=== PATIENT | female | born 1965 ===

== ENCOUNTER 2019-12-02 07:40 | Day surgery (SDC) | payer MEDICARE ==
[~2019-12-02 07:40] MED LIST: Buffered Lidocaine 1% SYRIN 1 ml INTRADERM ONE; Lactated Ringers 1000 ml BAG 1,000 ML IV SCH
[2019-12-02] MEDS ORDERED: ceFAZolin 2 GM PREMIX in ORs 2 GM/50 ML BAG ONE (08:06)
[2019-12-02] MEDS ORDERED: fentaNYL 100 mcg/2 ml 50 MCG/ML VIAL ONE ×2 (09:04→10:18)
[2019-12-02] MEDS ORDERED: Midazolam 2 mg/2 ml VIAL 1 mg/ml 2 ml VIAL (2 mg) ONE (09:04)
[2019-12-02] MEDS ORDERED: Bupivacaine 0.25% SDV 30 ML ONE (09:22)
[2019-12-02] MEDS ORDERED: ROPIVACAINE 5 MG/ML 30 ML BTL (0.5%) ONE (09:37)
[2019-12-02] MEDS ORDERED: Dexamethasone IV 4 MG/ML VIAL 1 ml VIAL ONE (09:58)
[2019-12-02] MEDS ORDERED: Ondansetron 4 mg VIAL 2 MG/ML 2 ml VIAL ONE (09:58)
[2019-12-02] MEDS ORDERED: Propofol 10 MG/ML 20 ML BTL ONE (09:58)
[2019-12-02] MEDS ORDERED: Lidocaine 2% PF 5 ML VIAL ONE (09:59)
[2019-12-02] MEDS ORDERED: Lidocaine 1% w EPI 1:100,000 MDV 20 ML VIAL ONE (10:41)
[2019-12-02] MEDS ORDERED: Acetaminophen IV 1 GM/100ML 100 ML ONE (11:56)
[2019-12-02] MEDS ORDERED: Naloxone 0.4 mg VIAL 0.4 mg/ml 1 ml VIAL IV PRN (12:55)
[2019-12-02] MEDS ORDERED: HYDROmorphone 1 MG/1 ML SYRINGE ONE (12:57)
[2019-12-02] MEDS: HYDROmorphone 1 MG/1 ML SYRINGE IV PRN ×2 (12:58→13:11)
[2019-12-02 14:12] VITALS: BP 138/93
== END 2019-12-02 15:39 | disposition home or self-care (01) ==
LOC: OR 07:40
PROVIDERS: ATTEND Orthopaedic Surgery
DX: M96.0 Pseudarthrosis after fusion or arthrodesis (principal); Z98.1 Arthrodesis status; T84.213A Breakdown (mechanical) of internal fixation device of bones of foot and toes, initial encounter; Y79.2 Prosthetic and other implants, materials and accessory orthopedic devices associated with adverse incidents; Y92.9 Unspecified place or not applicable; Y83.8 Other surgical procedures as the cause of abnormal reaction of the patient, or of later complication, without mention of misadventure at the time of the procedure; M19.90 Unspecified osteoarthritis, unspecified site; G89.18 Other acute postprocedural pain; K76.0 Fatty (change of) liver, not elsewhere classified; E66.9 Obesity, unspecified; F41.9 Anxiety disorder, unspecified; K21.9 Gastro-esophageal reflux disease without esophagitis; Z87.891 Personal history of nicotine dependence